=== PATIENT | female | born 1990 | race Two or more races ===

== ENCOUNTER 2025-06-20 11:23 | Emergency (ER) | payer OTHER ==
[~2025-06-20] VITALS: Ht 152.4 cm; Wt 47.2 kg
[2025-06-20 11:36] VITALS: BP 107/70; O2SAT 99
[2025-06-20] MEDS ORDERED: DEXAMETHASONE SODIUM PHOSPHATE 4 MG/ML VIAL IM ONE (12:00)
[2025-06-20] MEDS ORDERED: KETOROLAC TROMETHAMINE 60 MG VIAL IM ONE (12:00)
[2025-06-20 12:14] LABS: BASO % 0.7 % (0.1-1.2); EOS # 0.10 (0.04-0.54); EOS % 1.3 % (0.7-7.0); LYMPH # 1.15 (1.18-3.74); LYMPH % 15.0 % (19.3-53.1); MEAN PLATELET VOLUME 10.30 fl (9.4-12.4); MONO # 0.74 (0.24-0.82); MONO % 9.7 % (4.7-12.5); NEUT # 5.59 (1.56-6.13); NEUT % 72.9 % (34.0-71.1); RED CELL DISTRIBUTION WIDTH 15.6 % (11.6-14.4)
[2025-06-20 13:06] LABS: COVID-19 AG NEGATIVE (NEGATIVE)
[2025-06-20] MEDS ORDERED: ZITHROMAX500 MG PO (14:28)
[2025-06-20] MEDS ORDERED: TUSNEL LIQUID178 ML PO (14:28)
[2025-06-20] MEDS ORDERED: ZYRTEC10 M3 PO (14:28)
== END 2025-06-20 14:55 | disposition home or self-care (01) ==
LOC: ER 11:23
PROVIDERS: General Practice
DX: J06.9 Acute upper respiratory infection, unspecified (principal); Z20.822 Contact with and (suspected) exposure to COVID-19